=== PATIENT | female | born 1960 | race Caucasian/White ===

== ENCOUNTER 2019-04-15 12:18 | Outpatient (CLI) | payer BC ==
[2019-04-15] MEDS ORDERED: NONE PER PT (13:14)
[2019-04-15 13:19] LABS: BASOPHILS # (AUTO) 0.03 x10^3/uL (0-0.1); BASOPHILS % (AUTO) 0 % (0-1); EOSINOPHILS # (AUTO) 0.25 x10^3/uL (0-0.4); EOSINOPHILS % (AUTO) 3 % (1-7); LYMPHOCYTES # (AUTO) 2.18 x10^3/uL (1-3.4); LYMPHOCYTES % (AUTO) 28 % (22-44); MD NO; MEAN CORPUSCULAR HGB CONC 33.2 g/dL (32.4-35.8); MEAN CORPUSCULAR VOLUME 93.3 fL (80-100); MEAN PLATELET VOLUME 8.1 fL (7.4-10.4); MONOCYTES # (AUTO) 0.39 x10^3/uL (0.2-0.8); MONOCYTES % (AUTO) 5 % (2-9); NEUTROPHILS # (AUTO) 4.89 x10^3/uL (1.8-6.8); NEUTROPHILS % (AUTO) 63 % (42-75); PLATELET COUNT 275 x10^3/uL (130-400); RED CELL DISTRIBUTION WIDTH 12.9 % (9.6-15.2)
[2019-04-15 13:30] LABS: ANION GAP 6 mmol/L (5-15); CALCIUM 8.8 mg/dL (8.5-10.1); CHLORIDE 109 mmol/L (98-107); CREATININE 0.85 mg/dL (0.55-1.02)
== END 2019-04-15 23:59 | disposition home or self-care (01) ==
LOC: STAR 12:18
PROVIDERS: ATTEND Orthopaedic Surgery
DX: Z01.818 Encounter for other preprocedural examination (principal); M17.12 Unilateral primary osteoarthritis, left knee
CPT/HCPCS: 36415; 80048; 85025; 87081; 93005

== ENCOUNTER 2019-04-21 10:01 | Observation (INO) | payer BC ==
[~2019-04-21] VITALS: Ht 172.7 cm; Wt 107.7 kg
[~2019-04-21 10:01] MED LIST: EPINEPHRINE 1 MG/ML, 1ML ONE; FENTANYL PF 250 MCG/5ML ONE; KETOROLAC 60 MG/2 ML ONE; MIDAZOLAM 1 MG/ML, 2ML ONE; NONE PER PT; ROPIvacaine/PF 0.2%, 20 ML ONE; SODIUM CHLORIDE 0.9% 50 ML ONE; TRANEXAMIC ACID 100 MG/ML, 10ML ONE
[2019-04-21] MEDS ORDERED: LACTATED RINGERS 1,000 ML IV SCH (10:25)
[2019-04-21] MEDS ORDERED: GABAPENTIN 300 MG CAPSULE PO ONE (10:30)
[2019-04-21] MEDS ORDERED: SCOPOLAMINE PATCH, 1.5MG PATCH.TD72 TD ONE ×2 (10:30→10:31)
[2019-04-21] MEDS ORDERED: ACETAMINOPHEN 500 MG TABLET PO ONE (10:30)
[2019-04-21] MEDS ORDERED: GABAPENTIN 300 MG CAPSULE ONE (10:31)
[2019-04-21] MEDS ORDERED: PROPOFOL 50 ML ONE (11:50)
[2019-04-21] MEDS ORDERED: BUPIVACAINE/PF 0.25% ONE (11:56)
[2019-04-21] MEDS ORDERED: FENTANYL PF 100 MCG/2ML ONE (11:56)
[2019-04-21] MEDS ORDERED: LIDOCAINE-MPF 2% ,5ML ONE (11:56)
[2019-04-21] MEDS ORDERED: DEXAMETHASONE 4 MG/ML, 1ML ONE (11:57)
[2019-04-21] MEDS ORDERED: ONDANSETRON 2MG/ML, 2ML ONE ×2 (11:57→12:59)
[2019-04-21] MEDS ORDERED: CEFAZOLIN 1,000 MG ONE (11:57)
[2019-04-21] MEDS ORDERED: PROPOFOL 10 MG/ML, 20ML ONE (11:57)
[2019-04-21] MEDS ORDERED: DIAZEPAM 5 MG/ML, 2ML IVPush PRN (12:00)
[2019-04-21] MEDS ORDERED: MEPERIDINE/PF 25MG/ML,1ML IVPush PRN (12:00)
[2019-04-21] MEDS ORDERED: hydrALAzine 20 MG/ML, 1ML IV PRN (12:00)
[2019-04-21] MEDS ORDERED: MIDAZOLAM 1 MG/ML, 2ML IV PRN (12:00)
[2019-04-21] MEDS ORDERED: FENTANYL PF 100 MCG/2ML IV PRN (12:00)
[2019-04-21] MEDS ORDERED: ALBUTEROL/IPRATROPIUM 2.5MG/0.5MG, 3 ML NPPB PRN (12:00)
[2019-04-21] MEDS ORDERED: PROMETHAZINE 25 MG/ML, 1ML IV PRN (12:00)
[2019-04-21] MEDS ORDERED: OXYcodone 5 MG/5 ML ORAL.SOL UDC PO PRN (12:00)
[2019-04-21] MEDS ORDERED: METOPROLOL 1 MG/ML, 5ML IV PRN (12:00)
[2019-04-21] MEDS ORDERED: HYDROmorphone 1 MG/ML, 1ML VIAL ONE (12:52)
[2019-04-21] MEDS ORDERED: OXYcodone 5 MG/5 ML ORAL.SOL UDC ONE (12:52)
[2019-04-21] MEDS: HYDROmorphone 2 MG/ML, 1ML IVPush PRN ×2 (12:58→13:08)
[2019-04-21] MEDS ORDERED: MAGNESIUM HYDROXIDE 8%, 30ML UDC PO PRN (13:00)
[2019-04-21] MEDS ORDERED: DIAZEPAM 5 MG TABLET PO PRN (13:00)
[2019-04-21] MEDS ORDERED: SCOPOLAMINE PATCH, 1.5MG PATCH.TD72 TD SCH (13:00)
[2019-04-21] MEDS ORDERED: ONDANSETRON 2MG/ML, 2ML IV PRN (13:00)
[2019-04-21] MEDS ORDERED: ZOLPIDEM 5MG TABLET PO PRN (13:00)
[2019-04-21] MEDS ORDERED: SENNA/DOCUSATE TABLET PO PRN (13:00)
[2019-04-21] MEDS ORDERED: HYDROmorphone 1 MG/ML, 1ML INJ IVPush PRN (13:00)
[2019-04-21] MEDS ORDERED: PROMETHAZINE 25 MG/ML, 1ML IM PRN (13:00)
[2019-04-21] MEDS ORDERED: PROMETHAZINE 12.5 MG SUPP PR PRN (13:00)
[2019-04-21] MEDS ORDERED: BISACODYL 10 MG SUPP PR PRN (13:00)
[2019-04-21] MEDS ORDERED: DIPHENHYDRAMINE 50 MG CAPSULE PO PRN (13:00)
[2019-04-21] MEDS ORDERED: PSYLLIUM PACKET PO PRN (13:00)
[2019-04-21] MEDS ORDERED: ALUMINUM/MAG/SIMETHICONE 30 ML UDC PO PRN (13:00)
[2019-04-21] MEDS ORDERED: ONDANSETRON 4 MG TABLET PO PRN (13:00)
[2019-04-21] MEDS ORDERED: TRANEXAMIC ACID 1,000 MG in SODIUM CHLORIDE 0.9% 100 ML IVPB ONE (13:15)
[2019-04-21] MEDS: D5%-0.45% NACL 1,000 ML IV SCH (16:55)
[2019-04-21] MEDS: CALCIUM/VITAMIN D3 250-125 TABLET PO SCH (18:04)
[2019-04-21] MEDS: FERROUS SULFATE 325 MG TABLET PO SCH (18:04)
[2019-04-21] MEDS: CEFAZOLIN PMX 2GM/50ML 50 ML IVPB SCH (18:04)
[2019-04-21] MEDS: ACETAMINOPHEN 500 MG TABLET PO SCH (18:05)
[2019-04-21] MEDS: KETOROLAC 30 MG/1 ML IV SCH (18:31)
[2019-04-21 19:40] VITALS: BP 109/67
[2019-04-21] MEDS: DOCUSATE 100 MG CAPSULE PO SCH (21:10)
[2019-04-21] MEDS: ASPIRIN 81 MG TABLET EC PO SCH (21:10)
[2019-04-21] MEDS: OXYcodone IR 5MG TABLET PO PRN (21:52)
[2019-04-22] MEDS: KETOROLAC 30 MG/1 ML IV SCH ×2 (00:25→05:54)
[2019-04-22 00:28] VITALS: BP 119/58
[2019-04-22] MEDS: D5%-0.45% NACL 1,000 ML IV SCH (01:11)
[2019-04-22] MEDS: CEFAZOLIN PMX 2GM/50ML 50 ML IVPB SCH (02:22)
[2019-04-22 03:54] VITALS: BP 106/68
[2019-04-22] MEDS: ACETAMINOPHEN 500 MG TABLET PO SCH ×2 (05:54)
[2019-04-22] MEDS ORDERED: DEXAMETHASONE 4 MG/ML, 1ML IVPush ONE (06:00)
[2019-04-22 07:35] VITALS: BP 106/69
[2019-04-22] MEDS: DOCUSATE 100 MG CAPSULE PO SCH (08:38)
[2019-04-22] MEDS: CALCIUM/VITAMIN D3 250-125 TABLET PO SCH (08:38)
[2019-04-22] MEDS: ASPIRIN 81 MG TABLET EC PO SCH (08:38)
[2019-04-22] MEDS: FERROUS SULFATE 325 MG TABLET PO SCH (08:38)
[2019-04-22] MEDS ORDERED: MULTIVITAMINS/MINERALS TABLET PO SCH (09:00)
[2019-04-22] MEDS ORDERED: ASCORBIC ACID 500 MG TABLET PO SCH (09:00)
[2019-04-22] MEDS ORDERED: OXYC5TAB3 PO (09:30)
[2019-04-22] MEDS: OXYcodone IR 5MG TABLET PO PRN (11:32)
== END 2019-04-22 11:45 | disposition home or self-care (01) ==
LOC: OUT 10:01 → 4NE 14:31 → OUT 22:21 → DCLOUNGE 04-22 11:38
PROVIDERS: ADMIT Orthopaedic Surgery; ATTEND Orthopaedic Surgery
DX: M17.12 Unilateral primary osteoarthritis, left knee (principal); I10 Essential (primary) hypertension; F10.10 Alcohol abuse, uncomplicated; M76.61 Achilles tendinitis, right leg; Z88.5 Allergy status to narcotic agent; Z79.82 Long term (current) use of aspirin; Z79.899 Other long term (current) drug therapy; Z85.820 Personal history of malignant melanoma of skin
CPT/HCPCS: 27447; 36415; 73560; 85014; 85018; 96365; 96366; 96375; 96376; 97161; C1713; C1776; G0378; J0171; J0690; J1100; J1170; J1885; J2250; J2405; J2704; J2795; J3010; J3490; J7120